=== PATIENT | female | born 1955 | race African-American/Black ===

== ENCOUNTER 2021-10-14 11:55 | Observation (INO) | payer OTHER, SELFPAY ==
--- OUTSIDE RECORDS SUMMARY | 2021-10-14 12:01 | XMS REPORT | Continuity of Care Document ---
:1955 Author Organization [facility] t Address [address] [place] [address] Care Team Providers Name Role Phone DENNYS CORNELIUS Primary Care Physician Unavailable GIOVANI Attending Clinician Unavailable CHALO CORNELIUS Attending Clinician Unavailable Marcial WALDRON Attending Clinician Unavailable Attending Clinician Unavailable Singer CARRIZALES Attending Clinician Giovani CLAKR Attending Clinician Alona Attending Clinician Unavailable Jenni CLARK A Attending Clinician Faina Redd MD Attending Clinician Alona Admitting Clinician Unavailable Payers Payer Name Policy Type Policy Number Effective Date Expiration Date Zaira martin [employer]ET[employer] MANAGED [id number] 2020 MEDICARE PPO-LAVON 00:00:00 AETNA (MEDICARE [id number] 2020 REPLACEMENT PPO) 00:00:00 [place] B[place]: [id number] 2019 [employer] 00:00:00 [place] [id number] 2019 [employer] - 00:00:00 [facility] Problems Condition Condition Condition Status Onset Resolution Last Treating Co mments Source Name Details Category Date Date Treatment Clinician Date Dysphagia, Dysphagia, Disease Active 2020-08 Overview : Univers unspecifie unspecifie 0-29 Formattin ity of d type d type 00:00: g of this [place] 00 note Medical might be Branch different from the original. Added automatic ally from request for surgery [id number] Hyperlipid Hyperlipid Problem Active M andrew frank 03-22 da 00:[facility]: [facility] Rapid Rapid Disease Active 2020-0 Univers palpitatio palpitatio 04-13 it y of ns ns 00:00: Medical Branch Alopecia Alopecia Disease Active 2020-0 Unive rs 04-13 ity of 00:00: Medical Branch Cataracts, Cataracts, Disease Active 2020-0 U nivers bilateral bilateral 04-06 ity of 00:00: Medical Branch Hyperchole Hyperchole Disease Active 2020-0 U nivers sterolemia sterolemia 04-06 it y of 00:00: [place] [facility] Glaucoma Glaucoma Disease Active 2020-0 Unive rs 8 ity of 00:00: Medical Branch Prediabete Prediabete Disease Active 2020-0 U nivers s s 04-06 ity of 00:00: [place] 00 Medical Branch Seasonal Seasonal Disease Active 2020-0 Unive rs allergic allergic 04-06 ity of rhinitis rhinitis 00:00: 00 Medical Branch Essential Essential Disease Active 2020-0 Uni vers hypertensi hypertensi 04-06 it y of on on 00:00: Medical Branch N64.52 - Diagnosis Active 2018-02-12 M emoria NIPPLE 02-01 12:16:00 l DISCHARGE N64.52 - 00:01: Her page NIPPLE 00 DISCHARGE Active 02/01/2018 [facility] Gastroesop Problem Active 2020-04-17 M emoria hageal 8- 00:14:37 l reflux 00:00: [place] disease Gastroesop 00 (disorder) hageal reflux disease (disorder) Active 03/25/2015 Problem 04/17/2020 Data migrated from [facility] on 04/04/15. [facility], [facility] [place] Tendinitis Problem Active 2020-04-17 M emoria of hip 5- 00:14:37 l (disorder) 00:00: Darrian n Tendinitis 00 of hip (disorder) Active 12/12/2014 Problem 04/17/2020 Data migrated from [employer] on 04/04/15.Da ta migrated from [employer] on 02/18/15. [facility] [place] Family Problem Active 2013-082020-04-17 Memor ia history of 09-02 00:14:37 l malignant Family 00:00: Adela nn neoplasm history of 00 of breast malignant (situation neoplasm ) of breast (situation ) Active 07/03/2014 Problem 04/17/2020 Data migrated from [employer] on 04/04/15. [facility] [place] Tear film Problem Active 2020-04-17 Me moria insufficie 02-06 00:14:37 l ncy Tear 00:00: [place] (disorder) film 00 insufficie ncy (disorder) Active 02/06/2014 Problem 04/17/2020 Data migrated from [employer] on 04/04/15.Da ta migrated from [employer] on 01/10/15. [facility] [place] Cortical Problem Active 2020-04-17 Mem oria senile 4- 00:14:37 l cataract Cortical 00:00: Herm jason (disorder) senile 00 cataract (disorder) Active 11/12/2013 Problem 04/17/2020 Data migrated from [employer] on 04/04/15.Da ta migrated from [employer] on 01/10/15. [facility] [place] Disorder Problem Active 2020-04-17 Mem oria of - 00:14:37 l refraction Disorder 00:00: He rmann AND/OR of 00 accommodat refraction ion AND/OR (disorder) accommodat ion (disorder) Active 03/01/2013 Problem 04/17/2020 Data migrated from [employer] on 01/10/15. [facility] [place] Hypertensi Problem Active 2020-04-17 M emoria ve episode - 00:14:37 l (disorder) 00:00: Darrian n Hypertensi 00 ve episode (disorder) Active 10/05/2012 Problem 04/17/2020 Data migrated from [employer] on 01/10/15. [facility] [place] Physical Problem Active 2020-04-17 Mem oria examinatio 03-22 00:14:37 l n Physical 00:00: Darrian n procedure examinatio 00 (procedure n ) procedure (procedure ) Active 03/22/2012 Problem 04/17/2020 Data migrated from [employer] on 04/04/15. [facility] [place] Screening Problem Active 2020-04-17 Me moria - health 03-22 00:14:37 l check 00:00: [place] (procedure Screening 00 ) - health check (procedure ) Active 03/22/2012 Problem 04/17/2020 Data migrated from [employer] on 04/04/15. [facility] [place] Gynecologi Problem Active 2020-04-17 M emoria c 03-22 00:14:37 l examinatio 00:00: Darrian n n Gynecologi 00 (procedure c ) examinatio n (procedure ) Active 03/22/2012 Problem 04/17/2020 Data migrated from [employer] on 04/04/15. 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 [facility] Body mass Problem Active 2020-04-17 Me moria index 00:14:37 l 20-24 - Body [place] normal mass index (finding) 20-24 - normal (finding) Active Problem 04/17/2020 [facility] [place] Breast Problem Active 2020-04-17 Memor ia neoplasm 00:14:37 l screening Breast Adela nn status neoplasm (finding) screening status (finding) Active Problem 04/17/2020 [facility] [place] Cellulitis Problem Active 2020-04-17 M emoria of face 00:14:37 l (disorder) Darrian n Cellulitis of face (disorder) Active Problem 04/17/2020 [facility] Chest pain Problem Active 2020-04-17 M emoria (finding) 00:14:37 l Chest [place] pain (finding) Active Problem 04/17/2020 [facility] [place] Drug Problem Active 2020-04-17 Memor ia therapy 00:14:37 l finding Drug [place] (finding) therapy finding (finding) Active Problem 04/17/2020 [facility] [place] Galactorrh Problem Active 2020-04-17 M emoria ea not 00:14:37 l associated Darrian n with Galactorrh childbirth ea not (disorder) associated with childbirth (disorder) Active Problem 04/17/2020 [facility] [place] Gastroesop Problem Active 2020-04-17 M emoria hageal 00:14:37 l reflux [place] disease Gastroesop without hageal esophagiti reflux s disease (disorder) without esophagiti s (disorder) Active Problem 04/17/2020 [facility] [place] Maxillary Problem Active 2020-04-17 Me moria sinusitis 00:14:37 l (disorder) Darrian n Maxillary sinusitis (disorder) Active Problem 04/17/2020 [facility] Mixed Problem Active 2020-04-17 Memor ia hyperlipid 00:14:37 l emia Mixed [place] (disorder) hyperlipid emia (disorder) Active Problem 04/17/2020 [facility] [place] Pharyngiti Problem Active 2020-04-17 M emoria s 00:14:37 l (disorder) Darrian n Pharyngiti s (disorder) Active Problem 04/17/2020 [facility] [place] Screening Problem Active 2020-04-17 Me moria status 00:14:37 l (finding) [place] Screening status (finding) Active Problem 04/17/2020 [facility] [place] Hemoglobin Problem Active 2020-04-17 M emoria A1c above 00:14:37 l reference [place] range Hemoglobin (finding) A1c above reference range (finding) Active Problem 04/17/2020 [facility] Long-term Problem Resolve 2020-04-17 2020-04-17 Memoria drug d 3-05 00:14:37 00:14:37 l therapy 00:00: [place] (procedure Long-term 00 ) drug therapy (procedure ) Resolved 10/16/2013 Problem 04/17/2020 Data migrated from [facility] on 01/10/15. [facility] [place] Hordeolum Problem Resolve 2020-04-17 2020-04-17 Memoria externum d 6-12 00:14:37 00:14:37 l (disorder) 00:00: Darrian n Hordeolum 00 externum (disorder) Resolved 01/23/2013 Problem 04/17/2020 Data migrated from [employer] on 02/28/15.Da ta migrated from [employer] on 02/27/15. [facility], [facility] [place] History of Past Illness Condition Condition Condition Status Onset Resolution Last Treating Co mments Source Name Details Category Date Date Treatment Clinician Date Encounter Problem 2017-082019-02-13 2019-02-13 Memoria for 2-13 12:17:37 12:17:37 l gynecologi 22:57: Darrian n epifanio Encounter 00 examinatio for n gynecologi (general) epifanio (routine) examinatio without n abnormal (general) findings (routine) without abnormal findings 8 02/13/2019 Medical Group Nipple Problem 2018-02-03 2018-02-03 M emoria discharge 01-31 02:21:38 02:21:38 l Nipple 15:50: [place] discharge 00 01/31/2018 02/03/2018 [facility] Group Allergies, Adverse Reactions, Alerts Allergy Allergy Status Severity Reaction(s) Onset Inactive Treating Comm ents Source Name Type Date Date Clinician NO KNOWN Drug Active Univers ALLERGIE Class ity of S [place] [facility] Social History Social Habit Start Date Stop Date Quantity Comments Source Exposure to Not sure University of SARS-CoV-2 [place] [facility] (event) Branch History [facility] University o f Alcohol Comment [place] [facility] ical [facility] Alcohol intake 2021-10-11 2021-10-11 Lifetime University of 00:00:00 00:00:00 non-drinker [place] [facility] (finding) Branch Tobacco use and 2020-04-06 2020-04-06 Never used Universit y of exposure 00:00:00 00:00:00 [place] [facility] History [facility] 2020-04-06 2020-04-06 1 University o f Alcohol Frequency 00:00:00 00:00:00 [place] M edical Branch History [facility] 2020-04-06 2020-04-06 99 University o f Alcohol Std 00:00:00 00:00:00 [place] [facility] Drinks Branch History [facility] 2020-04-06 2020-04-06 1 University o f Alcohol Binge 00:00:00 00:00:00 [place] Medic al Branch Social History 2015-05-29 2015-05-29 [facility] Mumtaz cisse 21:25:40 21:25:40 [birth year] Universit y of 00:00:00 00:00:00 [facility] Smoking Status Start Date Stop Date Source Never smoker [facility] Branch Medications Ordered Filled Start Stop Current Ordering Indication Dosage Frequency Signature Comments Components Source Medication Medication Date Date Medication? Clinician (SIG) Name Name zolpidem 5 Yes [id number] 5mg Take 1 Univers mg tablet 3-03 tablet by ity o f 00:00: mouth at [place] 00 bedtime as Medical needed for Branch Insomnia. SERTraline Yes [id number] 50mg Take 1 U nivers 50 mg 2-12 tablet by ity of tablet 00:00: mouth [place] 00 daily. Medical Branch SERTraline Yes [id number] 50mg Take 1 U nivers 50 mg 2-12 tablet by ity of tablet 00:00: mouth [place] 00 daily. Medical Branch SERTraline Yes [id number] 50mg Take 1 U nivers 50 mg 2-12 tablet by ity of tablet 00:00: mouth [place] 00 daily. Medical Branch pantoprazol Yes [id number] 20mg Take 1 Univers e 20 mg EC 2-04 tablet by ity of tablet 00:00: mouth [place] 00 daily. Medical Branch pantoprazol Yes [id number] 20mg Take 1 Univers e 20 mg EC 2-04 tablet by ity of tablet 00:00: mouth [place] 00 daily. Medical Branch pantoprazol Yes [id number] 20mg Take 1 Univers e 20 mg EC 2-04 tablet by ity of tablet 00:00: mouth [place] 00 daily. Medical Branch aspirin Yes 81mg Take 81 mg Univ ers (ADULT LOW 1-25 by mouth ity o f DOSE 15:21: daily. [place] ASPIRIN) 81 23 Medical mg EC Branch tablet aspirin 2021-0 Yes 81mg Take 81 mg Univ ers (ADULT LOW 1-25 by mouth ity o f DOSE 15:21: daily. [place] ASPIRIN) 81 23 Medical mg EC Branch tablet aspirin 2021-0 Yes 81mg Take 81 mg Univ ers (ADULT LOW 1-25 by mouth ity o f DOSE 15:21: daily. [place] ASPIRIN) 81 23 Medical mg Branch tablet traZODone 2021-0 Yes [id number] 100mg Take 1 Univers 100 mg 1-25 tablet by ity of tablet 00:00: mouth at [place] [address] bedtime. Medical Branch hydroCHLORO 2021-0 Yes [id number] 25mg Take 1 Univers thiazide 25 1-25 tablet by ity of mg tablet 00:00: mouth [place] 00 daily. [facility] Branch traZODone 2021-0 Yes [id number] 100mg Take 1 Univers 100 mg 1-25 tablet by ity of tablet 00:00: mouth at [place] [address] bedtime. Medical Branch hydroCHLORO 2021-0 Yes [id number] 25mg Take 1 Univers thiazide 25 1-25 tablet by ity of mg tablet 00:00: mouth [place] 00 daily. [facility] Branch traZODone 2021-0 Yes [id number] 100mg Take 1 Univers 100 mg 1-25 tablet by ity of tablet 00:00: mouth at [place] [address] bedtime. Medical Branch hydroCHLORO 2021-0 Yes [id number] 25mg Take 1 Univers thiazide 25 1-25 tablet by ity of mg tablet 00:00: mouth [place] 00 daily. Medical Branch NIFEdipine 2021-0 Yes [id number] 30mg Take 1 U nivers ER 30 mg 1-22 tablet by ity of tablet 00:00: mouth [place] 00 daily. Medical Branch NIFEdipine 2021-0 Yes [id number] 30mg Take 1 U nivers ER 30 mg 1-22 tablet by ity of tablet 00:00: mouth [place] 00 daily. [facility] Branch NIFEdipine 2021-0 Yes [id number] 30mg Take 1 U nivers ER 30 mg 1-22 tablet by ity of tablet 00:00: mouth [place] 00 daily. [facility] Branch EZETIMIBE 2021-0 Yes [id number] TAKE 1 Un lisa 10 mg 1-10 TABLET ity of tablet 00:00: DAILY [place] 00 Medical Branch EZETIMIBE 2021-0 Yes [id number] TAKE 1 Un lisa 10 mg 1-10 TABLET ity of tablet 00:00: DAILY [place] 00 [facility] Branch EZETIMIBE 2021-0 Yes [id number] TAKE 1 Un lisa 10 mg 1-10 TABLET ity of tablet 00:00: DAILY [place] 00 Medical Branch latanoprost 2021-0 Yes Univer s 0.005 % 1-06 ity of ophthalmic 00:00: [place] drops 00 Medical Branch latanoprost Yes Univer s 0.005 % - ity of ophthalmic 00:00: [place] drops 00 Medical Branch latanoprost Yes Univer s 0.005 % -06 ity of ophthalmic 00:00: [place] drops 00 Medical Branch carboxymeth 2020-[address] in U nivers ylcellulose 1-09 each eye. ity of sodium 13:38: [place] (REFRESH 19 Medical OPHTHALMIC) Branch carboxymeth 2020-[address] in U nivers ylcellulose 1-09 each eye. ity of sodium 13:38: [place] (REFRESH 19 Medical OPHTHALMIC) Branch carboxymeth 2020-[address] in U nivers ylcellulose 1-09 each eye. ity of sodium 13:38: [place] ([facility] Medical OPHTHALMIC) Branch timolol 0.5 2019-08 Yes INSTILL 1 U nivers % 2-04 DROP IN TO ity of ophthalmic 00:00: BOTH EYES [place] solution 00 TWICE A Medical DAY Branch timolol 0.5 2019-08 Yes INSTILL 1 U nivers % 2-04 DROP IN TO ity of ophthalmic 00:00: BOTH EYES [place] solution 00 TWICE A Medical DAY Branch timolol 0.5 2019-08 Yes INSTILL 1 U nivers % 2-04 DROP IN TO ity of ophthalmic 00:00: BOTH EYES [place] solution 00 TWICE A Medical DAY Branch Fluconazole Yes 150 mg = 1 Memoria 150 MG Oral 4-06 tab, PO, l Tablet 15:29: ONCE, # 1 Darrian n [Diflucan] 00 tab, 0 Refill(s), Pharmacy: [facility] nitrofurant Yes 100 mg = 1 Memoria oin 3-12 cap, PO, l macrocrysta 20:26: BID, X 5 He rmann ls-monohydr 00 day, # 10 ate 100 mg cap, 0 oral Refill(s), capsule Pharmacy: (Macrobid) [facility] Fluconazole Yes 150 mg = 1 Memoria 150 MG Oral 3-12 tab, PO, l Tablet 20:06: ONCE, # 1 Darrian n [Diflucan] 00 tab, 0 Refill(s), Pharmacy: [id number] Fluconazole No 150 mg = 1 Memoria 150 MG Oral 3-12 tab, PO, l Tablet 20:05: ONCE, # 1 Darrian n [Diflucan] 00 tab, 0 Refill(s), Pharmacy: [facility] NIFEdipine Yes = 1 tab, Mem oria 30 mg oral 3-11 PO, Daily, l tablet, 16:07: # 90 tab, Adela nn extended 13 Refill(s) release 1, Pharmacy: [facility] atorvastati Yes 10 mg = 1 M emoria n 10 mg 2-25 tab, PO, l oral tablet 23:41: Bedtime, # Felipe 19 90 tab, 4 Refill(s), Pharmacy: [facility] NIFEdipine Yes 30 mg = 1 Me moria 30 mg oral 2-25 tab, PO, l tablet, 23:41: Daily, # Darrian n extended 15 90 tab, 4 release Refill(s), Pharmacy: [facility] Tobramycin 2017-08 No 1 drp, Memor ia 3 MG/ML 2-24 RIGHT EYE, l Ophthalmic 16:34: Q4H, X 7 Her page Solution 00 day, # 5 ml, 0 Refill(s), Pharmacy: [id number] Cefuroxime 2017-08 No 500 mg = 1 M emoria 500 MG Oral 2-24 tab, PO, l Tablet 16:34: BID, X 10 Darrian n [Ceftin] 00 day, # 20 tab, 0 Refill(s), Pharmacy: [facility]5 NIFEdipine Yes 30 mg = 1 Me moria 30 mg oral 6-20 tab, PO, l tablet, 14:23: Daily, # Darrina n extended 50 90 tab, 4 release Refill(s), Pharmacy: [facility] atorvastati Yes 10 mg = 1 M emoria n 10 mg 6-20 tab, PO, l oral tablet 14:23: Bedtime, # [place] 48 90 tab, 4 Refill(s), Pharmacy: [facility] NIFEdipine No 30 mg = 1 Me moria 30 mg oral 3-09 tab, PO, l tablet, 23:27: Daily, # Darrian n extended 11 90 tab, 4 release Refill(s), Pharmacy: [facility] atorvastati No 10 mg = 1 M emoria n 10 mg 3-09 tab, PO, l oral tablet 23:26: Bedtime, # [place] 55 90 tab, 4 Refill(s), Pharmacy: [facility] NIFEdipine No 30 mg = 1 Me moria 30 mg oral 3-09 tab, PO, l tablet, 23:22: Daily, # Darrian n extended 46 90 tab, 4 release Refill(s), Pharmacy: [facility] [id number] atorvastati No 10 mg = 1 M emoria n 10 mg 3-09 tab, PO, l oral tablet 23:22: Bedtime, # [place] 44 90 tab, 4 Refill(s), Pharmacy: [id number] Penicillin No 500 mg = 1 M emoria V Potassium 3-09 tab, PO, l 500 MG Oral 23:22: Q6H, X 10 H ermann Tablet 00 day, # 40 tab, 0 Refill(s), Pharmacy: [facility] 140 ofloxacin ofloxacin No ofloxacin [place] 0.3 % ear 0.3 % ear 0.3 % ear da drops drops drops [facility] INSTILL 10 INSTILL 10 INSTILL 10 al DROPS INTO DROPS INTO DROPS INTO Health AFFECTED AFFECTED AFFECTED Out reac EAR(S) BY EAR(S) BY EAR(S) BY h OTIC ROUTE OTIC ROUTE OTIC ROUTE Program ONCE DAILY ONCE DAILY ONCE DAILY Augmentin Augmentin No 1 Q12H Augmentin [place] 875 mg-125 875 mg-125 875 mg-125 da mg tablet mg tablet mg tablet [facility] Take 1 Take 1 Take 1 al tablet tablet tablet Health every 12 every 12 every 12 Out reac hours by hours by hours by h oral route oral route oral route Program for 10 for 10 for 10 days. days. days. ezetimibe ezetimibe No 1 Q1D ezetimibe [place] 10 mg 10 mg 10 mg da tablet Take tablet Take tablet [facility] 1 tablet 1 tablet Take 1 al every day every day tablet Hea lth by oral by oral every day Outr eac route. route. by oral h route. Program nifedipine nifedipine No 1 Q1D nifedipine [place] ER 30 mg ER 30 mg ER 30 mg da tablet,exte tablet,exte tablet,ext [facility] nded nded ended al release release release Health Take 1 Take 1 Take 1 Outreac tablet tablet tablet h every day every day every day Program by oral by oral by oral route. route. route. Immunizations Ordered Filled Immunization Date Status Comments [facility] e Immunization Name Name SARS-COV-2 COVID-19 2021-06-29 Completed Unive rsity of MODERNA BOOSTER 00:00:00 [facility] VACCINE Branch SARS-COV-2 COVID-19 2021-06-29 Completed Unive rsity of MODERNA BOOSTER 00:00:00 [facility] SARS-COV-2 COVID-19 2021-06-29 Completed Unive rsity of MODERNA BOOSTER 00:00:00 [facility] Influenza Virus 2021-05-12 Completed Universit y of Vaccine Quad IM 3+ 00:00:00 [facility] Influenza Virus 2021-05-12 Completed Universit y of Vaccine Quad IM 3+ 00:00:00 [facility] Influenza Virus 2021-05-12 Completed Universit y of Vaccine Quad IM 3+ 00:00:00 [facility] SARS-COV-2 COVID-19 2020-09-18 Completed Unive rsity of MODERNA VACCINE 00:00:00 [facility] SARS-COV-2 COVID-19 2020-09-18 Completed Unive rsity of MODERNA VACCINE 00:00:00 [facility] SARS-COV-2 COVID-19 2020-09-18 Completed Unive rsity of MODERNA VACCINE 00:00:00 [facility] SARS-COV-2 COVID-19 2020-08-21 Completed Unive rsity of MODERNA VACCINE 00:00:00 [facility] SARS-COV-2 COVID-19 2020-08-21 Completed Unive rsity of MODERNA VACCINE 00:00:00 [facility] SARS-COV-2 COVID-19 2020-08-21 Completed Unive rsity of MODERNA VACCINE 00:00:00 [facility] Influenza High Dose 2020-04-14 Completed Unive rsity of 00:00:00 [facility] Influenza High Dose 2020-04-14 Completed Unive rsity of 00:00:00 [facility] Influenza High Dose 2020-04-14 Completed Unive rsity of 00:00:00 [facility] influenza virus 2017-05-22 Completed [facility] [place] vaccine, 00:00:00 inactivated<sup>1</ sup> influenza virus 2016-06-01 Completed [facility] [place] vaccine, 00:00:00 inactivated<sup>2</ sup> influenza virus 2016-06-01 Completed [facility] [place] vaccine, 00:00:00 inactivated<sup>1</ sup> Vital Signs Vital Name Observation Time Observation Value Comments Source Systolic blood 2021-10-14 15:06:00 153 mm[Hg] Univer sity of pressure [facility] Diastolic blood 2021-10-14 15:06:00 80 mm[Hg] Unive rsity of pressure [facility] Heart rate 2021-10-14 15:06:00 81 /min Universi ty of [facility] Body temperature 2021-10-14 15:06:00 36.83 Samantha Univ ersity of [facility] Respiratory rate 2021-10-14 15:06:00 18 /min Univ ersity of [facility] Body weight 2021-10-14 15:06:00 63.05 kg Universi ty of [place] [facility] BMI 2021-10-14 15:06:00 22.44 kg/m2 Universi ty of [facility] Oxygen saturation in 2021-10-14 15:06:00 99 /min University Arterial blood by [facility] Pulse oximetry Branch Systolic blood 2021-10-04 17:09:00 120 mm[Hg] Univer sity of pressure [facility] Diastolic blood 2021-10-04 17:09:00 72 mm[Hg] Unive rsity of pressure [facility] Heart rate 2021-10-04 17:09:00 69 /min Universi ty of [place] [facility] Body temperature 2021-10-04 17:09:00 36.61 Samantha Univ ersity of [facility] Branch Respiratory rate 2021-10-04 17:09:00 16 /min Univ ersity of [facility] Branch Body weight 2021-10-04 17:09:00 63.322 kg Universi ty of [place] [facility] BMI 2021-10-04 17:09:00 22.53 kg/m2 Universi ty of [facility] Oxygen saturation in 2021-10-04 17:09:00 98 /min University of Arterial blood by [facility] Pulse oximetry Branch BP Diastolic 2021-03-22 00:00:00 77 mm[Hg] [place] [facility] Height 2021-03-22 00:00:00 66 [in_i] [place] [facility] BMI (Body Mass 2021-03-22 00:00:00 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) [facility] BP Systolic 2021-03-22 00:00:00 152 mm[Hg] [place] [facility] Body Weight 2021-03-22 00:00:00 2304 [oz_av] [place] [facility] Systolic (mm Hg) 2019-12-04 16:08:00 Zak rial [place] Diastolic (mm Hg) 2019-12-04 16:08:00 Mem orial [place] Heart Rate 2019-12-04 16:08:00 [facility] [place] Temperature Oral (F) 2019-12-04 16:08:00 98.3 F [facility] [place] Weight 2019-12-04 16:08:00 [facility] Systolic (mm Hg) 2019-10-24 19:53:00 [facility] [place] Diastolic (mm Hg) 2019-10-24 19:53:00 [facility] [place] Heart Rate 2019-10-24 19:53:00 [facility] Temperature Oral (F) 2019-10-24 19:53:00 98.7 F [facility] Weight 2019-10-24 19:53:00 [facility] Systolic (mm Hg) 2019-09-06 19:08:00 [facility] [place] Diastolic (mm Hg) 2019-09-06 19:08:00 [facility] Heart Rate 2019-09-06 19:08:00 [facility] [place] Temperature Oral (F) 2019-09-06 19:08:00 98.3 F [facility] [place] Weight 2019-09-06 19:08:00 [facility] [place] Systolic (mm Hg) 2019-08-05 19:13:00 [facility] [place] Diastolic (mm Hg) 2019-08-05 19:13:00 [facility] Heart Rate 2019-08-05 19:13:00 [facility] [place] Temperature Oral (F) 2019-08-05 19:13:00 98.1 F [facility] [place] Weight 2019-08-05 19:13:00 [facility] Weight 2019-03-13 18:26:00 [facility] [place] Temperature Oral (F) 2019-03-13 18:26:00 98.0 F [facility] [place] Heart Rate 2019-03-13 18:26:00 [facility] Systolic (mm Hg) 2019-03-13 18:26:00 [facility] [place] Diastolic (mm Hg) 2019-03-13 18:26:00 [facility] Respitory Rate 2018-08-31 21:58:00 [facility] Temperature Oral (F) 2018-08-31 21:58:00 98.3 F [facility] [place] Heart Rate 2018-08-31 21:58:00 [facility] Weight 2018-08-31 21:58:00 [facility] Systolic (mm Hg) 2018-08-31 21:58:00 [facility] Diastolic (mm Hg) 2018-08-31 21:58:00 [facility] [place] Weight 2018-08-06 15:30:00 [facility] Temperature Oral (F) 2018-08-06 15:30:00 98.4 F [facility] Respitory Rate 2018-08-06 15:30:00 [facility] [place] Heart Rate 2018-08-06 15:30:00 [facility] [place] Systolic (mm Hg) 2018-08-06 15:30:00 [facility] [place] Diastolic (mm Hg) 2018-08-06 15:30:00 [facility] [place] Height 2018-07-26 21:54:00 167.64 cm [facility] Weight 2018-07-26 21:54:00 [facility] [place] BMI Calculated 2018-07-26 21:54:00 [facility] Systolic (mm Hg) 2018-07-26 21:54:00 [facility] [place] Diastolic (mm Hg) 2018-07-26 21:54:00 [facility] [place] Heart Rate 2018-07-26 21:54:00 [facility] [place] Height 2018-02-21 15:24:00 167.64 cm [facility] Weight 2018-02-21 15:24:00 [facility] BMI Calculated 2018-02-21 15:24:00 [facility] Systolic (mm Hg) 2018-02-21 15:24:00 [facility] [place] Diastolic (mm Hg) 2018-02-21 15:24:00 [facility] Heart Rate 2018-02-21 15:24:00 [facility] [place] Temperature Oral (F) 2018-02-21 15:24:00 98.5 F [facility] BMI Calculated 2018-01-31 14:42:00 [facility] Systolic (mm Hg) 2018-01-31 14:42:00 [facility] Diastolic (mm Hg) 2018-01-31 14:42:00 [facility] [place] Heart Rate 2018-01-31 14:42:00 [facility] Height 2018-01-31 14:42:00 167.64 cm [facility] Weight 2018-01-31 14:42:00 [facility] [place] Weight 2018-01-31 13:42:00 [facility] [place] Systolic (mm Hg) 2018-01-31 13:42:00 [facility] [place] Diastolic (mm Hg) 2018-01-31 13:42:00 [facility] Heart Rate 2018-01-31 13:42:00 [facility] Respitory Rate 2018-01-31 13:42:00 [facility] Temperature Oral (F) 2018-01-31 13:42:00 97.6 F [facility] [place] Weight 2017-10-20 22:24:00 [facility] [place] BMI Calculated 2017-10-20 22:24:00 [facility] [place] Height 2017-10-20 22:24:00 162.56 cm [facility] Heart Rate 2017-10-20 22:24:00 [facility] Respitory Rate 2017-10-20 22:24:00 [facility] [place] Temperature Oral (F) 2017-10-20 22:24:00 98.8 F [facility] Systolic (mm Hg) 2017-10-20 22:24:00 [facility] [place] Diastolic (mm Hg) 2017-10-20 22:24:00 [facility] Weight 2017-07-31 20:52:00 [facility] Heart Rate 2017-07-31 20:52:00 [facility] Temperature Oral (F) 2017-07-31 20:52:00 98.0 F Ivis Wang Systolic (mm Hg) 2017-07-31 20:52:00 Zak franklin Wang Diastolic (mm Hg) 2017-07-31 20:52:00 [facility] [place] Procedures Procedure Date / Time Performed Performing Clinician [facility] e CONSENT/REFUSAL FOR 2021-10-14 15:02:38 [facility] T[facility]AT[facility] Arthroplasty<sup>1</s [facility] ermann up> Biopsy of Ivis Wang breast<sup>2</sup> Plan of Care Planned Activity Planned Date Details Comments Source Encounters Start End Encounter Admission Attending Care Care Encounter Source Date/Time Date/Time Type Type Clinicians Facility Department ID 2022-04-04 2022-04-04 [facility] [id number] [facility] 10:30:00 10:30:00 MANJIT [id number] [facility] 2021-10-26 2021-10-26 [facility] [id number] Univers 10:00:00 10:00:00 DENNYS [id number] [facility] 2021-10-14 2021-10-14 [facility] [id number] Univers 15:30:00 15:30:00 SENDIL [id number] [facility] 2021-10-14 2021-10-14 Emergency X [facility] ERT [id number] Univers 09:09:00 09:36:00 DINA [facility] 2021-10-14 2021-10-14 Emergency [facility] [id number] Univers 09:09:00 09:36:00 Dina BAJWA [id number] i ty [id number] [id number] [address] 2021-10-04 2021-10-04 Office [facility] [id number] Univers 11:00:00 11:37:57 Visit Manjit BAJWA [id number] i ty of [place] [id number] [facility] PROF[facility]IO [id number] Tn dical NAL [address] BUILDING 2021-07-03 2021-07-03 Outpatient Obisesan_ad MEHOP MEHOP [id number] [place] 02:27:00 02:27:00 ekunbi [id number] [facility] 2021-07-03 2021-07-03 Outpatient Obisesan_ad MEHOP MEHOP [id number] [place] 02:27:00 02:27:00 ekunbi [id number] [facility] 2021-05-29 2021-05-29 Outpatient Obisesan_ad MEHOP MEHOP [id number] [place] 03:51:00 03:51:00 ekunbi [id number] [facility] 2021-04-24 2021-04-24 Outpatient Obisesan_ad MEHOP MEHOP 116 [id number] [place] 03:05:00 03:05:00 ekunbi [id number] [facility] 2021-03-23 2021-03-23 Outpatient Obisesan_ad MEHOP MEHOP 116 [id number] [place] 09:42:00 09:42:00 ekunbi [id number] [facility] 2021-03-22 2021-03-22 Outpatient Obisesan_ad MEHOP MEHOP 116 [id number] [place] 08:42:00 08:42:00 ekunbi [id number] [facility] 2021-03-22 2021-03-22 Adekunbi VAHOP [place] - [id number] [place] 00:00:00 00:00:00 ObMargaret james da TALENT SCOUT: [facility] - [facility] al [facility]Formerly [facility] [address] h , Ph. Program 2020-12-15 2020-12-15 Telephone ELISSA Arteaga [id number] 00:00:00 00:00:00 [employer] [facility] [id number] [place] [id number] Tonya [phone] nal [address] 2020-12-11 2020-12-11 Telephone Adum, [facility] [id number] 00:00:00 00:00:00 Marianna Bajwa [id number] [place] [id number] Professio [phone] [address] 2020-12-09 2020-12-09 Office Ad, [facility] [id number] 11:02:22 12:10:56 Visit Marianna Bajwa [id number] [place] [id number] Professio [phone] [address] 2020-04-13 2020-04-15 Phone nullFlavo [facility] Family [id number] Memoria 15:28:28 04:59:59 Message r Medicine 09 faina Wang 2019-12-10 2019-12-12 Phone nullFlavo [facility] Family [id number] Memoria 14:09:41 04:59:59 Message r Medicine 08 Gerry Bhattann 2019-12-07 2019-12-08 Between nullFlavo [facility] Family [id number] Memoria 19:14:02 19:14:02 Visit r Medicine 28 faina Wang 2019-12-04 2019-12-05 Outpatient nullFlavo [facility] Family 4 [id number] Memoria 16:00:00 04:59:59 r Medicine 52 faina Wang 2019-12-02 2019-12-04 Phone nullFlavo [facility] Family [id number] Memoria 13:34:12 04:59:59 Message r Medicine 07 faina Bhattann 2019-12-02 2019-12-04 Phone nullFlavo [facility] Family [id number] Memoria 13:23:17 04:59:59 Message r Medicine 06 faina Wang 2019-11-18 2019-11-19 Outpatient nullFlavo [facility] 4 [id number] Mem[facility] 15:15:00 04:59:59 r Medicine 51 faina Wang 2019-11-18 2019-11-18 Ambulatory nullFlavo [facility] 4 [id number] Mem[facility] 15:15:00 15:15:00 Pre-Reg r Medicine 50 faina Wang 2019-11-15 2019-11-15 Ambulatory nullFlavo [facility] 4 [id number] Memoria 20:15:00 20:15:00 Pre-Reg r Medicine 49 faina Wang 2019-10-31 2019-10-31 Ambulatory nullFlavo [facility] 4 [id number] Memoria 16:00:00 16:00:00 Pre-Reg r Medicine 48 faina Wang 2019-10-30 2019-10-31 Between nullFlavo [facility] [id number] Memoria 13:27:32 13:27:32 Visit r Medicine 25 faina Wang 2019-10-24 2019-10-25 Outpatient nullFlavo [facility] 4 [id number] Memoria 20:15:00 04:59:59 r Medicine 47 faina Wang 2019-10-22 2019-10-24 Phone nullFlavo [facility] [id number] Memoria 13:44:50 04:59:59 Message r Medicine 05 faina Wang 2019-09-06 2019-09-07 Outpatient nullFlavo [facility] 4 [id number] Memoria 19:00:00 05:59:59 r Medicine 46 faina Wang 2019-09-06 2019-09-06 Ambulatory nullFlavo [facility] 4 [id number] Memoria 16:30:00 16:30:00 Pre-Reg r Medicine 45 faina Wang 2019-08-05 2019-08-06 Outpatient nullFlavo [facility] 4 [id number] Memoria 19:00:00 05:59:59 r Medicine 44 faina Wang 2019-07-30 2019-07-30 Outpatient [facility] [id number] Memoria 16:00:00 16:00:00 37 faina Wang 2019-03-28 2019-03-28 Ambulatory nullFlavo [facility] [id number] Memoria 13:30:00 13:30:00 Pre-Reg r Radiology 42 faina Wang 2019-03-22 2019-03-24 Phone nullFlavo [facility] Family [id number] Memoria 15:28:38 04:59:59 Message r Medicine 04 faina Wang 2019-03-22 2019-03-23 Outpatient nullFlavo [facility] [id number] Memoria 14:00:00 04:59:59 r Radiology 43 faina Wang 2019-03-13 2019-03-14 Outpatient nullFlavo [facility] 4 [id number] Memoria 18:15:00 04:59:59 r Medicine 41 faina Wang 2019-02-28 2019-03-02 Phone nullFlavo [facility] Family [id number] Memoria 15:05:12 04:59:59 Message r Medicine 03 faina Wang 2019-02-06 2019-02-06 Ambulatory nullFlavo [facility] 4 [id number] Memoria 13:30:00 13:30:00 Pre-Reg r Medicine 35 faina Wang 2018-10-08 2018-10-10 Phone nullFlavo [facility] Family [id number] Memoria 22:15:00 05:59:59 Message r Medicine 02 faina Wang 2018-08-31 2018-09-01 Outpatient nullFlavo [facility] 4 [id number] Memoria 22:15:00 05:59:59 r Medicine 40 faina Wang 2018-08-06 2018-08-07 Ambulatory nullFlavo [facility] [id number] Memoria 16:45:00 05:59:59 Pre-Reg r Radiology 39 faina Wang 2018-08-06 2018-08-07 Outpatient nullFlavo [facility] Family 4 [id number] Memoria 15:15:00 05:59:59 r Medicine 38 faina Wang 2018-07-26 2018-07-27 Outpatient nullFlavo [facility] [employer] 4 [id number] Memoria 21:30:00 05:59:59 r Bacon 27 faina Wang 2018-03-13 2018-03-13 Ambulatory nullFlavo [facility] [id number] Memoria 16:00:00 16:00:00 Pre-Reg r Radiology 29 faina Wang 2018-02-21 2018-02-22 Outpatient nullFlavo [facility] Family 4 [id number] Memoria 15:00:00 04:59:59 r Medicine 36 faina Wang 2018-02-12 2018-02-13 Outpt Diag nullFlavo [facility] [id number] Memoria 17:05:00 04:59:00 Services r Outpatient 00 faina Wang [place] 2018-01-31 2018-02-01 Outpatient nullFlavo [facility] [employer] 4 [id number] Memoria 14:30:00 04:59:59 r Gerry 33 faina Wang 2018-01-31 2018-02-01 Outpatient nullFlavo [facility] 4 [id number] Memoria 13:30:00 04:59:59 r Medicine 34 faina Wang 2017-10-20 2017-10-21 Outpatient nullFlavo [facility] 4 [id number] Memoria 21:45:00 05:59:59 r Medicine 32 faina Wang 2017-08-21 2017-08-21 Ambulatory nullFlavo [facility] [id number] Memoria 21:30:00 21:30:00 Pre-Reg r Gastroenter 28 faina Garrett 2017-07-31 2017-08-01 Outpatient nullFlavo [facility] 4 [id number] Memoria 21:00:00 05:59:59 r Medicine 31 faina [place] 2017-06-05 2017-06-05 Outpatient MHIE [facility] [id number] Memoria 16:00:00 16:00:00 30 faina Felipe 2017-05-30 2017-05-30 Outpatient MHIE [facility] [id number] Memoria 15:30:00 15:30:00 26 faina Felipe 2017-04-20 2017-04-20 Outpatient MHIE [facility]IE [id number] Memoria 15:45:00 15:45:00 24 faina Felipe 2017-03-29 2017-03-29 Outpatient MHIE [facility] [id number] Memoria 15:30:00 15:30:00 25 faina Felipe 2017-03-10 2017-03-10 Outpatient MHIE [facility]IE [id number] Memoria 10:00:00 10:00:00 23 faina Felipe 2017-01-12 2017-01-12 Outpatient MHIE [facility] [id number] Memoria 09:15:00 09:15:00 22 faina Felipe 2016-12-05 2016-12-05 Outpatient MHIE [facility] [id number] Memoria 15:45:00 15:45:00 21 faina Felipe 2016-09-01 2016-09-01 Outpatient MHIE [facility]IE [id number] Memoria 11:15:00 11:15:00 20 faina Felipe 2016-04-25 2016-04-25 Outpatient MHIE [facility] [id number] Memoria 11:30:00 11:30:00 18 faina Felipe 2016-04-13 2016-04-13 Outpatient MHIE [facility] [id number] Memoria 15:00:00 15:00:00 19 faina Felipe 2016-03-21 2016-03-21 Outpatient MHIE [facility] [id number] Memoria 09:00:00 09:00:00 16 faina Feliep 2016-03-15 2016-03-15 Outpatient MHIE [facility] [id number] Memoria 09:00:00 09:00:00 17 faina Felipe 2016-03-14 2016-03-14 Outpatient MHIE [facility] [id number] Memoria 13:00:00 13:00:00 15 faina Felipe 2016-03-14 2016-03-14 Outpatient MHIE [facility]IE [id number] Memoria 13:00:00 13:00:00 14 faina Felipe 2016-03-14 2016-03-14 Outpatient MHIE MHIE [id number] Memoria 11:15:00 11:15:00 13 faina Felipe 2016-01-21 2016-01-21 Outpatient MHIE [facility]IE [id number] Memoria 11:00:00 11:00:00 08 faina Felipe 2016-01-21 2016-01-21 Outpatient MHIE MHIE [id number] Memoria 11:00:00 11:00:00 12 faina Felipe 2016-01-21 2016-01-21 Outpatient MHIE MHIE [id number] Memoria 10:00:00 10:00:00 09 faina Felipe 2015-10-30 2015-10-30 Outpatient MHIE [facility] [id number] Memoria 09:45:00 09:45:00 11 faina Wang 2015-09-22 2015-09-22 Outpatient MHIE [facility] [id number] Memoria 16:15:00 16:15:00 10 faina Wang 2015-07-14 2015-07-14 Outpatient MHIE [facility] [id number] Memoria 15:45:00 15:45:00 05 faina Wang 2015-07-14 2015-07-14 Outpatient MHIE [facility] [id number] Memoria 15:30:00 15:30:00 04 faina Felipe 2015-07-13 2015-07-13 Outpatient ADALGISA ADALGISA [id number] Memoria 15:30:00 15:30:00 07 faina Felipe 2015-05-29 2015-05-29 Outpatient ADALGISA ADALGISA [id number] Memoria 15:30:00 15:30:00 06 faina Felipe 2015-04-13 2015-04-13 Outpatient ADALGISA ADALGISA [id number] Memoria 15:00:00 15:00:00 00 faina Felipe 2015-03-31 2015-03-31 Outpatient ADALGISA ADALGISA [id number] Memoria 09:00:00 09:00:00 03 faina Felipe 2015-03-25 2015-03-25 Outpatient ADALGISA ADALGISA [id number] Memoria 16:15:00 16:15:00 02 faina Felipe 2015-03-19 2015-03-19 [id number] Memoria 15:15:00 15:15:00 01 faina Wang Results Test Description Test Time Test Comments Results Result Comments Source MOLECULAR DIAGNOSTIC 2019-12-04 16:58:00 Test Item Value Reference Range Interpretation Comme nts T vaginalis by Amp Det(APTIMA) (test code = T vaginalis by Amp NOT DETECTED Det(APTIMA)) [facility] [id number] 16:47:00 Test Item Value Reference Range Interpretation Comments Glucose Lvl (test code = Glucose Lvl) 90 65-99 [facility] [id number] 16:47:00 Test Item Value Reference Range Interpretation Comments BUN (test code = BUN) 15 7-25 [facility] IM5 [id number] 16:47:00 Test Item Value Reference Range Interpretation Comments Creatinine Lvl (test code = Creatinine 0.94 0.50-0.99 Lvl) [facility] IM5 [id number] 16:47:00 Test Item Value Reference Range Interpretation Comments eGFR NON-AFR. [place] (test code = 64 eGFR NON-AFR. [place]) [facility] [id number] 16:47:00 Test Item Value Reference Range Interpretation Comments eGFR (test code = eGFR 74 ) [facility] [id number] 16:47:00 Test Item Value Reference Range Interpretation Comments B/C Ratio (test code = B/C NOT APPLICABLE 22 Ratio) [place] [id number] 16:47:00 Test Item Value Reference Range Interpretation Comments Sodium Lvl (test code = Sodium Lvl) 143 135-146 [place] [id number] 16:47:00 Test Item Value Reference Range Interpretation Comments Potassium Lvl (test code = Potassium 4.7 3.5-5.3 Lvl) [place] [id number] 16:47:00 Test Item Value Reference Range Interpretation Comments Chloride Lvl (test code = Chloride Lvl) 106 98-110 [place] [id number] 16:47:00 Test Item Value Reference Range Interpretation Comments CO2 (test code = CO2) 30 20-32 [place] [id number] 16:47:00 Test Item Value Reference Range Interpretation Comments Calcium Lvl (test code = Calcium Lvl) 9.5 8.6-10.4 [place] [id number] 16:47:00 Test Item Value Reference Range Interpretation Comments Total Protein (test code = Total 7.4 6.1-8.1 Protein) [facility]2020-04-22 16:47:00 Test Item Value Reference Range Interpretation Comments Albumin Lvl (test code = Albumin Lvl) 4.3 3.6-5.1 [place] [id number] 16:47:00 Test Item Value Reference Range Interpretation Comments Globulin (test code = Globulin) 3.1 1.9-3.7 [place] [id number] 16:47:00 Test Item Value Reference Range Interpretation Comments A/G Ratio (test code = A/G Ratio) 1.4 1.0-2.5 [place] [id number] 16:47:00 Test Item Value Reference Range Interpretation Comments Bili Total (test code = Bili Total) 0.5 0.2-1.2 [place] [id number] 16:47:00 Test Item Value Reference Range Interpretation Comments Alk Phos (test code = Alk Phos) 70 37-153 [place] 315670-04-22 16:47:00 Test Item Value Reference Range Interpretation Comments ASPARTATE TRANSAMINASE (test code = 17 10-35 ASPARTATE TRANSAMINASE) [facility]2020-04-22 16:47:00 Test Item Value Reference Range Interpretation Comments ALANINE AMINOTRANSFERASE (test code = 15 6-29 ALANINE AMINOTRANSFERASE) [facility]wsomstACMQFZWGJC0476-03-14 16:47:00 Test Item Value Reference Range Interpretation Comments WBC X 10x3 (test code = WBC X 10x3) 7.5 3.8-10.8 [facility] [id number] 16:47:00 Test Item Value Reference Range Interpretation Comments RBC X 10x6 (test code = RBC X 10x6) 4.29 3.80-5.10 [facility] [id number] 16:47:00 Test Item Value Reference Range Interpretation Comments Hgb (test code = Hgb) 11.6 11.7-15.5 [facility] CenterQgirvckZWSJTMHWQI8473-22-20 16:47:00 Test Item Value Reference Range Interpretation Comments Hct (test code = Hct) 35.9 35.0-45.0 [facility] [id number] 16:47:00 Test Item Value Reference Range Interpretation Comments MCV (test code = MCV) 83.7 80.0-100.0 [facility] CenterGruvxetBECZXPDUIH4535-08-22 16:47:00 Test Item Value Reference Range Interpretation Comments MCH (test code = MCH) 27.0 pg 27.0-33.0 [facility] CenterCigairwOAFFTVGIVY9879-86-21 16:47:00 Test Item Value Reference Range Interpretation Comments MCHC (test code = MCHC) 32.3 32.0-36.0 [facility] CenterWzsnnxiZBVISEJUWY3581-43-21 16:47:00 Test Item Value Reference Range Interpretation Comments RDW (test code = RDW) 14.8 11.0-15.0 [facility] Cent[id number] 16:47:00 Test Item Value Reference Range Interpretation Comments Platelet (test code = Platelet) 235 140-400 [facility] CenterEwdrpcsYSQGXZSYFC2632-39-34 16:47:00 Test Item Value Reference Range Interpretation Comments MPV (test code = MPV) 11.4 7.5-12.5 [facility] Cent[id number] 16:47:00 Test Item Value Reference Range Interpretation Comments Neutrophils # (test code = Neutrophils 5370 6636-5420 #) [facility] CenterXqkdjooTVTDYESQEE7397-48-39 16:47:00 Test Item Value Reference Range Interpretation Comments Lymphocytes # (test code = Lymphocytes 3311 171-3017 #) [facility]takeqbCBTQGZQBBW9354-42-76 16:47:00 Test Item Value Reference Range Interpretation Comments Monocytes # (test code = Monocytes #) 368 200-950 [facility]pojNNB[facility]WYNCC0596-18-16 16:47:00 Test Item Value Reference Range Interpretation Comments Eosinophils # (test code = Eosinophils 90 15-500 #) [facility] Hos[id number] 16:47:00 Test Item Value Reference Range Interpretation Comments Basophils # (test code 30 See_Comment [Aut omated message] The = Basophils #) system which generated this result tra nsmitted reference range : <=200. The reference r ebony was not used to int erpret this result as normal/abnormal . [facility] HospitalHffbnrzUBLFJKKSDU8019-21-49 16:47:00 Test Item Value Reference Range Interpretation Comments Segs (test code = Segs) 71.6 [facility] HospitalMkgonvaSCEEPDCULN6884-67-39 16:47:00 Test Item Value Reference Range Interpretation Comments Lymphocytes (test code = Lymphocytes) 21.9 [facility]tvtjjlOPKTCEINBT7161-73-99 16:47:00 Test Item Value Reference Range Interpretation Comments Monocytes (test code = Monocytes) 4.9 [facility] HospitalCxkjlrzISFJRIYHCX8964-22-94 16:47:00 Test Item Value Reference Range Interpretation Comments Eosinophils (test code = Eosinophils) 1.2 [facility] H[id number] 16:47:00 Test Item Value Reference Range Interpretation Comments Basophils (test code = Basophils) 0.4 [facility] [id number] 16:47:00 Test Item Value Reference Range Interpretation Comments Result 2 (Urine Culture) See Result Comment (test code = Result 2 (Urine Culture)) [facility]
--- NOTE | 2021-10-14 13:42 | RAD REPORT ---
EXAM DESCRIPTION: CT - Head Brain Wo Cont - 10/14/2021 1:25 pm CLINICAL HISTORY: Declining state;Dizziness COMPARISON: No comparisons TECHNIQUE: Axial 5 mm thick images of the head were obtained without IV contrast. All CT scans are performed using dose optimization technique as appropriate and may include automated exposure control or mA/KV adjustment according to patient size. FINDINGS: No intracranial hemorrhage, mass, edema or shift of mid-line structures. No acute infarcti on changes seen. No abnormal extra-axial fluid collections. Ventricles are normal. No significant atr ophy or chronic ischemic changes. Mastoid air cells are clear. Mucosal thickening changes are seen along the floor the sphenoid sinus a nd left maxillary sinus. No air-fluid level or significant sinus finding. No acute bony findings. IMPRESSION: Negative non-contrast CT head examination for acute or significant finding.
[2021-10-14] MEDS ORDERED: ASPIRIN 81 MG CHEWABLE TABLET ONE (13:44)
[2021-10-14 14:01] LABS: BUN Blood Urea Nitrogen 22 mg/dL (7-18); Bicarbonate 31 mmol/L (21-32); Glucose Level 105 mg/dL (74-106); Potassium 3.6 mmol/L (3.5-5.1); Sodium Level 141 mmol/L (136-145)
[2021-10-14 14:03] LABS: Urine Blood Negative (Negative); Urine Glucose Negative (Negative); Urine Protein Negative (Negative); Urine Specific Gravity 1.015 (1.005-1.030)
[2021-10-14 14:06] LABS: Absolute Lymphocytes (CBC) 2.1 K/uL (0.7-4.9); Hematocrit 35.1 % (36.0-45.0); Lymphocytes % 23.2 % (15.3-44.8); MPV 8.4 fL (7.6-11.3); RBC Red Blood Cell Count 4.17 M/uL (3.86-4.86)
[2021-10-14 14:24] LABS: Protime INR 1.12
[2021-10-14 15:17] LABS: ALT/SGPT 27 U/L (12-78); AST/SGOT 16 U/L (15-37); Albumin 3.9 g/dL (3.4-5.0); Alkaline Phosphatase 76 U/L (45-117); Bilirubin Total 0.3 mg/dL (0.2-1.0); Lipase 102 U/L (73-393); Magnesium 2.3 mg/dL (1.8-2.4); NT PRO-BNP 14 pg/mL (<125); Protein, Total 7.8 g/dL (6.4-8.2); Thyroid Stimulating Hormone 0.911 uIU/mL (0.360-3.740)
--- NOTE | 2021-10-14 15:17 | RAD REPORT ---
EXAM DESCRIPTION: RAD - Chest Single View - 10/14/2021 2:31 pm CLINICAL HISTORY: COUGH COMPARISON: None TECHNIQUE: AP portable chest image was obtained 10/14/2021 2:31 pm . FINDINGS: Lungs are clear. Heart and vasculature are normal. No measurable pleural effusion and no p neumothorax. No acute bony abnormality seen. No acute aortic findings suspected. IMPRESSION: No acute cardiopulmonary process.
[2021-10-14 15:18] LABS: Bilirubin Direct < 0.1 mg/dL (0-0.2)
--- NOTE | 2021-10-14 15:52 | EDPHYS ---
Physician Documentation [facility] Name: Akua Begum Age: 66 yrs Sex: Female : 1955 Arrival Date: 10/14/2021 Time: 12:01 Bed 16 Private MD: ED Physician Christiano Powers HPI: 10/14 13:10 This 66 yrs old Black Female presents to ER via Ambulatory with complaints of UNABLE TO debbie SLEEP, WEIGHT LOSS. 13:10 The patient complains of pain to the top of head, forehead, left frontal area, left debbie side of the back of head, right frontal area, right side of the back of head and right occipital area. The patient describes the headache as aching. Onset: The symptoms/episode began/occurred 100 day(s) ago. weakness, insomina, chairez, weight loss. Associated signs and symptoms: Pertinent positives: nausea, weakness. Severity of symptoms: At its worst the pain was mild, in the emergency department the pain is unchanged. Headache History: The patient has had previous headaches and this one is similar to previous episodes. Onset: The symptoms/episode began/occurred 3 month(s) ago. Severity of symptoms: At their worst the symptoms were mild moderate in the emergency department the symptoms are unchanged. The symptoms are alleviated by nothing. the symptoms are aggravated by nothing. Historical: - Allergies: 12:06 No Known Allergies; cb5 - PMHx: 12:06 Hypertensive disorder; Hypercholesterolemia; diabetes-resolved with weight loss; cb5 - PSHx: 12:06 None; cb5 - Immunization history:: Client reports receiving the 2nd dose of the Covid vaccine. - Social history:: Smoking status: Patient denies any tobacco usage or history of. - Family history:: not pertinent. ROS: 13:10 Constitutional: Negative for fever, chills, and weight loss, Eyes: Negative for injury, debbie pain, redness, and discharge, ENT: Negative for injury, pain, and discharge, Neck: Negative for injury, pain, and swelling, Cardiovascular: Negative for chest pain, palpitations, and edema, Respiratory: Negative for shortness of breath, cough, wheezing, and pleuritic chest pain, Abdomen/GI: Negative for abdominal pain, nausea, vomiting, diarrhea, and constipation, Back: Negative for injury and pain, : Negative for injury, bleeding, discharge, and swelling, MS/Extremity: Negative for injury and deformity, Skin: Negative for injury, rash, and discoloration, Neuro: Negative for headache, weakness, numbness, tingling, and seizure, Psych: Negative for depression, anxiety, suicide ideation, homicidal ideation, and hallucinations, Allergy/Immunology: Negative for hives, rash, and allergies, Endocrine: Negative for neck swelling, polydipsia, polyuria, polyphagia, and marked weight changes, Hematologic/Lymphatic: Negative for swollen nodes, abnormal bleeding, and unusual bruising. Exam: 13:10 Constitutional: This is a well developed, well nourished patient who is awake, alert, debbie and in no acute distress. Head/Face: Normocephalic, atraumatic. Eyes: Pupils equal round and reactive to light, extra-ocular motions intact. Lids and lashes normal. Conjunctiva and sclera are non-icteric and not injected. Cornea within normal limits. Periorbital areas with no swelling, redness, or edema. ENT: Nares patent. No nasal discharge, no septal abnormalities noted. Tympanic membranes are normal and external auditory canals are clear. Oropharynx with no redness, swelling, or masses, exudates, or evidence of obstruction, uvula midline. Mucous membranes moist. Neck: Trachea midline, no thyromegaly or masses palpated, and no cervical lymphadenopathy. Supple, full range of motion without nuchal rigidity, or vertebral point tenderness. No Meningismus. Chest/axilla: Normal chest wall appearance and motion. Nontender with no deformity. No lesions are appreciated. Cardiovascular: Regular rate and rhythm with a normal S1 and S2. No gallops, murmurs, or rubs. Normal PMI, no JVD. No pulse deficits. Respiratory: Lungs have equal breath sounds bilaterally, clear to auscultation and percussion. No rales, rhonchi or wheezes noted. No increased work of breathing, no retractions or nasal flaring. Abdomen/GI: Soft, non-tender, with normal bowel sounds. No distension or tympany. No guarding or rebound. No evidence of tenderness throughout. Back: No spinal tenderness. No costovertebral tenderness. Full range of motion. Female : Normal external genitalia. Skin: Warm, dry with normal turgor. Normal color with no rashes, no lesions, and no evidence of cellulitis. MS/ Extremity: Pulses equal, no cyanosis. Neurovascular intact. Full, normal range of motion. Neuro: Awake and alert, GCS 15, oriented to person, place, time, and situation. Cranial nerves II-XII grossly intact. Motor strength 5/5 in all extremities. Sensory grossly intact. Cerebellar exam normal. Normal gait. Psych: Awake, alert, with orientation to person, place and time. Behavior, mood, and affect are within normal limits. 15:59 ECG was reviewed by the Attending Physician. debbie 15:59 ECG was reviewed by the Attending Physician. [facility] Vital Signs: 12:06 BP 128 / 78; Pulse 78; Resp 17; Temp 98.7; Pulse Ox 99% on R/A; Weight 63.05 kg; Height cb5 5 ft. 6 in. (167.64 cm); Pain 0/10; 12:38 BP 159 / 83; Pulse 69; Resp 16; Pulse Ox 100% ; Pain 0/10; cb5 14:15 BP 173 / 90; Pulse 68; Resp 16; Pulse Ox 98% ; Pain 0/10; cb5 15:00 BP 169 / 84; Pulse 70; Resp 16; Pulse Ox 99% ; Pain 0/10; cb5 16:00 BP 173 / 93; Pulse 74; Resp 16; Pain 0/10; cb5 18:19 BP 168 / 80; Pulse 80; Resp 16; Pulse Ox 98% ; Pain 0/10; cb5 12:06 Body Mass Index 22.43 (63.05 kg, 167.64 cm) cb5 NIH Stroke Scale Scores: 13:10 NIHSS Score: 0 debbie Melania Coma Score: 13:13 Eye Response: spontaneous(4). Verbal Response: oriented(5). Motor Response: obeys debbie commands(6). Total: 15. MDM: 12:38 Patient medically screened. debbie 13:13 Differential diagnosis: hypoglycemia, hyponatremia, sinusitis, temporal arteritis, debbie tension headache, vasomotor headache. Differential Diagnosis altered mental status. Data reviewed: vital signs, nurses notes, lab test result(s), EKG, radiologic studies, CT scan, plain films. Data interpreted: road gang supervisor: rate is 69 beats/min, rhythm is regular, Pulse oximetry: on room air is 100 %. Test interpretation: by ED physician or midlevel provider: ECG, plain radiologic studies. Counseling: I had a detailed discussion with the patient and/or guardian regarding: the historical points, exam findings, and any diagnostic results supporting the discharge/admit diagnosis, lab results, radiology results. 10/14 13:10 Order name: Basic Metabolic Panel [facility] 10/14 13:10 Order name: CBC with Diff [facility] 10/14 13:10 Order name: LFT's [facility] 10/14 13:10 Order name: Magnesium; Complete Time: 15:42 [facility] 10/14 13:10 Order name: NT PRO-BNP; Complete Time: 15:42 [facility] 10/14 13:10 Order name: PT-INR; Complete Time: 14:45 [facility] 10/14 13:10 Order name: Troponin HS; Complete Time: 15:42 [facility] 10/14 13:10 Order name: Lipase; Complete Time: 15:42 [facility] 10/14 13:10 Order name: TSH; Complete Time: 15:42 [facility] 10/14 13:10 Order name: Urine Culture [facility] 10/14 13:10 Order name: Basic Metabolic Panel; Complete Time: 15:42 [facility] 10/14 13:10 Order name: CBC with Automated Diff; Complete Time: 14:15 [facility] 10/14 13:10 Order name: Liver (Hepatic) Function; Complete Time: 15:42 [facility] 10/14 14:03 Order name: Urine Dipstick-Ancillary; Complete Time: 14:15 [facility] 10/14 13:10 Order name: XRAY Chest (1 view); Complete Time: 15:42 [facility] 10/14 13:10 Order name: EKG; Complete Time: 13:11 [facility] 10/14 13:10 Order name: Cardiac monitoring; Complete Time: 13:25 [facility] 10/14 13:10 Order name: EKG - Nurse/Tech; Complete Time: 13:58 [facility] 10/14 13:10 Order name: IV Saline Lock; Complete Time: 13:25 [facility] 10/14 13:10 Order name: Labs collected and sent; Complete Time: 13:25 [facility] 10/14 13:10 Order name: CT Head Brain wo Cont; Complete Time: 14:15 [facility] 10/14 13:38 Order name: EKG; Complete Time: 13:39 10/14 15:45 Order name: EKG; Complete Time: 15:46 [facility] 10/14 16:25 Order name: CONS Physician Consult [facility] 10/14 20:13 Order name: COVID-19/FLU A+B (Document "Date of Onset" if Symptomatic) cs9 10/14 21:58 Order name: COVID-19/FLU A+B [facility] 10/14 13:10 Order name: O2 Per Protocol; Complete Time: 13:25 [facility] 10/14 13:10 Order name: O2 Sat Monitoring; Complete Time: 13:25 [facility] 10/14 13:10 Order name: Urine Dipstick-Ancillary (obtain specimen); Complete Time: 13:58 [facility] 10/14 13:21 Order name: Labs - recollect needed: recollect blue and lavender top; Complete Time: bd 13:58 10/14 13:38 Order name: EKG - Nurse/Tech; Complete Time: 13:43 10/14 15:45 Order name: EKG - Nurse/Tech; Complete Time: 16:28 [facility] EC:59 Rate is 64 beats/min. Rhythm is regular. QRS [place] is Normal. MD interval is normal. QRS debbie interval is normal. QT interval is normal. No Q waves. T waves are Normal. Clinical impression: No evidence of ischemia. Interpreted by me. Reviewed by me. 15:59 Rate is 62 beats/min. Rhythm is regular. QRS [place] is Normal. MD interval is normal. QRS debbie interval is normal. QT interval is normal. T waves are Normal. No ST changes noted. Clinical impression: NSR w/ Non-specific ST/T Changes and No evidence of ischemia. Interpreted by me. Reviewed by me. Administered Medications: 13:43 Drug: Aspirin Chewable Tablet 324 mg Route: PO; cb5 13:57 Drug: NS 0.9% 1000 ml Route: IV; Rate: 1 bolus; Site: right antecubital; cb5 17:03 Drug: hydrALAZINE 10 mg Route: IVP; Site: right antecubital; cb5 21:00 Follow up: Response: Blood pressure is lowered sv1 19:43 Drug: Labetalol 10 mg Route: IVP; Site: right antecubital; sv1 20:58 Follow up: Response: No adverse reaction; Blood pressure is lowered sv1 22:46 Follow up: Response: No adverse reaction; Blood pressure is lowered sv1 Disposition Summary: 10/14/21 15:52 Hospitalization Ordered Hospitalization Status: Observation [facility] Provider: Prince debbie Bhatti Location: Telemetry/MedSurg (observation) debbie Condition: Fair debbie Problem: new debbie Symptoms: have improved debbie Bed/Room Type: Standard [facility] Room Assignment: 208(10/14/21 22:04) cg Diagnosis - Weakness debbie - Syncope Near debbie - Anorexia debbie - Abnormal electrocardiogram [ECG] [EKG] debbie Forms: - Medication Reconciliation Form debbie - SBAR form debbie NIH Stroke Scale - NIH Stroke Score Date: 10/14/2021 Time: 13:10 Total Score = 0 1a. Level of Consciousness (LOC) - 0(Alert) 1b. Level of Consciousness (LOC) (Month \\T\\ Age) - 0(Both) 1c. LOC Commands (Open \\T\\ Closes Eyes/Desktop Analyst) - 0(Both) 2. Best Gaze (Lateral Gaze Paresis) - 0(Normal) 3. Visual Field Loss - 0(No visual loss) 4. Facial Palsy - 0(Normal) 5a. Left Arm: Motor (10-second hold) - 0(No drift) 5b. Right Arm: Motor (10-second hold) - 0(No drift) 6a. Left Leg: Motor (5-second hold - always test supine) - 0(No drift) 6b. Right Leg: Motor (5-second hold - always test supine) - 0(No drift) 7. Limb Ataxia (finger/nose \\T\\ heel/hernandez - test with eyes open) - 0(Absent) 8. Sensory Loss (pinprick arms/legs/face) - 0(Normal) 9. Best Language: Aphasia (description/naming/reading) - 0(No aphasia) 10. Dysarthria (speech clarity - read or repeat words) - 0(Normal) 11. Extinction and Inattention (visual/tactile/auditory/spatial/personal) - 0(No abnormality) Initials: debbie Signatures: Dispatcher [employer] EDMS Missy Dash Corey, MD MD cha Smirch, Shelby, RN RN ss Josh Borrego, HAULING CONTRACTOR-C HAULING CONTRACTOR-Cla1 Ryann Lopez RN RN cg Minesh Pemberton PA PA ej Villicano, Steven, RN RN sv1 Michell Rey, RN RN cb5 Corrections: (The following items were deleted from the chart) 22:04 15:52 debbie cg
--- NOTE | 2021-10-14 15:52 | ER ---
Nurse's Notes [facility] Name: Akua Begum Age: 66 yrs Sex: Female : 1955 Arrival Date: 10/14/2021 Time: 12:01 Bed 16 Private MD: Diagnosis: Weakness;Syncope Near;Anorexia;Abnormal electrocardiogram [ECG] [EKG] Presentation: 10/14 12:06 Chief complaint: Patient states: Not sleeping well, not eating well, losing weight cb5 (about 10 pounds) for past 3 months. No fever. Coronavirus screen: Vaccine status: Patient reports receiving the 2nd dose of the covid vaccine. Client denies travel out of the [place] in the last 14 days. At this time, the client does not indicate any symptoms associated with coronavirus-19. Ebola Screen: Patient denies travel to an Ebola-affected area in the 21 days before illness onset. Initial Sepsis Screen: Does the patient meet any 2 criteria? No. Patient's initial sepsis screen is negative. Does the patient have a suspected source of infection? No. Patient's initial sepsis screen is negative. Risk Assessment: Do you want to hurt yourself or someone else? Patient reports no desire to harm self or others. Onset of symptoms was July 16, 2021. 12:06 Method Of Arrival: Ambulatory cb5 12:06 Acuity: JEANA 3 cb5 Triage Assessment: 12:08 General: Appears ill, Behavior is calm, cooperative, appropriate for age. Pain: Denies cb5 pain. Neuro: Reports weakness. Cardiovascular: No deficits noted. Respiratory: No deficits noted. GI: Reports intolerance of food. Historical: - Allergies: 12:06 No Known Allergies; cb5 - PMHx: 12:06 Hypertensive disorder; Hypercholesterolemia; diabetes-resolved with weight loss; cb5 - PSHx: 12:06 None; cb5 - Immunization history:: Client reports receiving the 2nd dose of the Covid vaccine. - Social history:: Smoking status: Patient denies any tobacco usage or history of. - Family history:: not pertinent. Screenin:15 Abuse screen: Denies threats or abuse. Denies injuries from another. Nutritional cb5 screening: pt states she hasn't had a restful nights sleep in a few months, and is also losing weight. Tuberculosis screening: No symptoms or risk factors identified. Fall Risk None identified. Assessment: 12:15 General: Appears in no apparent distress. comfortable, well groomed, Behavior is calm, cb5 cooperative, appropriate for age. Pain: Denies pain. Neuro: No deficits noted. Level of Consciousness is awake, alert, obeys commands, Oriented to person, place, time, situation, Appropriate for age. Cardiovascular: No deficits noted. Respiratory: No deficits noted. GI: Reports unintentional weight loss. : No deficits noted. EENT: No deficits noted. Derm: No deficits noted. Musculoskeletal: No deficits noted. 13:30 Reassessment: Patient and/or family updated on plan of care and expected duration. Pain cb5 level reassessed. 14:29 Reassessment: Patient and/or family updated on plan of care and expected duration. Pain cb5 level reassessed. 15:25 Reassessment: Patient and/or family updated on plan of care and expected duration. Pain cb5 level reassessed. Pain: Denies pain. 19:43 Reassessment: The patient's blood pressure was 192/90. The provider was notified. sv1 Labetalo 10 mg IVP was given. . 20:05 Reassessment: blood pressure 131/65. sv1 22:30 Reassessment: Report called to Laura Quick . sv1 Vital Signs: 12:06 BP 128 / 78; Pulse 78; Resp 17; Temp 98.7; Pulse Ox 99% on R/A; Weight 63.05 kg; Height cb5 5 ft. 6 in. (167.64 cm); Pain 0/10; 12:38 BP 159 / 83; Pulse 69; Resp 16; Pulse Ox 100% ; Pain 0/10; cb5 14:15 BP 173 / 90; Pulse 68; Resp 16; Pulse Ox 98% ; Pain 0/10; cb5 15:00 BP 169 / 84; Pulse 70; Resp 16; Pulse Ox 99% ; Pain 0/10; cb5 16:00 BP 173 / 93; Pulse 74; Resp 16; Pain 0/10; cb5 18:19 BP 168 / 80; Pulse 80; Resp 16; Pulse Ox 98% ; Pain 0/10; cb5 12:06 Body Mass Index 22.43 (63.05 kg, 167.64 cm) cb5 Melania Coma Score: 13:13 Eye Response: spontaneous(4). Verbal Response: oriented(5). Motor Response: obeys debbie commands(6). Total: 15. NIH Stroke Scale Scores: 13:10 NIHSS Score: 0 debbie ED Course: 12:01 Patient arrived in ED. kz 12:05 Arm band placed on Patient placed in an exam room, on a stretcher. cb5 12:08 Triage completed. cb5 12:15 Michell Rey, RN is Primary Nurse. cb5 12:15 No provider procedures requiring assistance completed. Inserted saline lock: 20 gauge cb5 in right antecubital area, using aseptic technique. 12:38 Christiano Powers MD is Attending Physician. debbie 12:40 Bed in low position. Call light in reach. Side rails up X 1. cb5 13:24 CT Head Brain wo Cont In Process Unspecified. EDMS 13:24 Liver (Hepatic) Function Sent. cb5 13:24 CBC with Automated Diff Sent. cb5 13:24 Basic Metabolic Panel Sent. cb5 13:24 Lipase Sent. cb5 13:24 TSH Sent. cb5 13:25 Basic Metabolic Panel Sent. cb5 13:25 CBC with Diff Sent. cb5 13:25 LFT's Sent. cb5 13:25 Magnesium Sent. cb5 13:25 NT PRO-BNP Sent. cb5 13:25 PT-INR Sent. cb5 13:25 Troponin HS Sent. cb5 14:31 XRAY Chest (1 view) In Process Unspecified. EDMS 15:51 Prince Bhatti MD is Hospitalizing Provider. debbie 19:04 Report given to GAIL Gorman. cb5 21:14 COVID-19/FLU A+B (Document "Date of Onset" if Symptomatic) Sent. sv1 22:45 Patient admitted, IV remains in place. intact. sv1 Administered Medications: 13:43 Drug: Aspirin Chewable Tablet 324 mg Route: PO; cb5 13:57 Drug: NS 0.9% 1000 ml Route: IV; Rate: 1 bolus; Site: right antecubital; cb5 17:03 Drug: hydrALAZINE 10 mg Route: IVP; Site: right antecubital; cb5 21:00 Follow up: Response: Blood pressure is lowered sv1 19:43 Drug: Labetalol 10 mg Route: IVP; Site: right antecubital; sv1 20:58 Follow up: Response: No adverse reaction; Blood pressure is lowered sv1 22:46 Follow up: Response: No adverse reaction; Blood pressure is lowered sv1 Outcome: 15:52 Decision to Hospitalize by Provider. debbie 22:42 Admitted to Med/surg accompanied by tech, via wheelchair. sv1 22:42 Condition: stable 22:42 Instructed on the need for admit. 22:47 Patient left the ED. sv1 NIH Stroke Scale - NIH Stroke Score Date: 10/14/2021 Time: 13:10 Total Score = 0 1a. Level of Consciousness (LOC) - 0(Alert) 1b. Level of Consciousness (LOC) (Month \\T\\ Age) - 0(Both) 1c. LOC Commands (Open \\T\\ Closes Eyes/Sewing Inspector) - 0(Both) 2. Best Gaze (Lateral Gaze Paresis) - 0(Normal) 3. Visual Field Loss - 0(No visual loss) 4. Facial Palsy - 0(Normal) 5a. Left Arm: Motor (10-second hold) - 0(No drift) 5b. Right Arm: Motor (10-second hold) - 0(No drift) 6a. Left Leg: Motor (5-second hold - always test supine) - 0(No drift) 6b. Right Leg: Motor (5-second hold - always test supine) - 0(No drift) 7. Limb Ataxia (finger/nose \\T\\ heel/hernandez - test with eyes open) - 0(Absent) 8. Sensory Loss (pinprick arms/legs/face) - 0(Normal) 9. Best Language: Aphasia (description/naming/reading) - 0(No aphasia) 10. Dysarthria (speech clarity - read or repeat words) - 0(Normal) 11. Extinction and Inattention (visual/tactile/auditory/spatial/personal) - 0(No abnormality) Initials: debbie Signatures: Dispatcher [employer] EDChristiano Ibanez MD MD cha Villicano, Steven, RN RN sv1 Michell Rey, GAIL RN cb5 Moraima Jimenez
--- NOTE | 2021-10-14 16:39 | P.HP ---
Certification for Inpatient Patient admitted to: Observation With expected LOS: <2 Midnights Patient will require the following post-hospital care: None Practitioner: I am a practitioner with admitting privileges, knowledge of patient current condition, hospital course, and medical plan of care. Services: Services provided to patient in accordance with Admission requirements found in Title 42 Section 412.3 of the Code of Federal Regulations Patient History Date of Service: 10/14/21 Reason for admission: weakness History of Present Illness: Ms. Begum is a 66 yo female with HTN and HLD who presents with three months of insomnia, weight loss of 10lbs, headache, and anorexia. She also reports palpitations, weakness, fatigue. Every time she eats she gags. When she is able to keep food down, she has a bowel movement immediately. She says she saw her PCP and was prescribed trazodone with no improvements in her sleep. She was prescribed Zoloft two weeks ago by an ED physician. Nonspecific EKG changes. No chest pain. BP is elevated. - Past Medical/Surgical History Diabetic: No -: HTN -: HLD Past Surgical History: Patient denies surgical history - Family History Family History: Reviewed- Non-Contributory - Social History Smoking Status: Never smoker Alcohol use: No CD- Drugs: No Caffeine use: No Place of Residence: Home Review of Systems 10-point ROS is otherwise unremarkable General: Weakness Eyes: Unremarkable ENT: Unremarkable Respiratory: Unremarkable Cardiovascular: Palpitations Gastrointestinal: Nausea Genitourinary: Unremarkable Musculoskeletal: Unremarkable Integumentary: Unremarkable Neurological: Weakness, As per HPI Lymphatics: Unremarkable Physical Examination - Physical Exam General: Alert, In no apparent distress, Oriented x3, Cooperative HEENT: Atraumatic, PERRLA, Mucous membr. moist/pink, EOMI, Sclerae nonicteric Neck: Supple, 2+ carotid pulse no bruit, No LAD, Without JVD or thyroid abnormality Respiratory: Clear to auscultation bilaterally, Normal air movement Cardiovascular: No edema, Regular rate/rhythm, Normal S1 S2 Gastrointestinal: Normal bowel sounds, No tenderness Musculoskeletal: No tenderness Integumentary: No rashes Neurological: Normal speech, Normal strength at 5/5 x4 extr, Normal tone, Sensation intact, Abnormal affect (depressed affect) Lymphatics: No axilla or inguinal lymphadenopathy - Studies Laboratory Data (last 24 hrs) 10/14/21 13:51: PT 12.9 H, INR 1.12 10/14/21 13:51: WBC 9.20, Hgb 11.9 L, Hct 35.1 L, Plt Count 272 10/14/21 12:30: Sodium 141, Potassium 3.6, BUN 22 H, Creatinine 0.99, Glucose 105, Magnesium 2.3, Total Bilirubin 0.3, AST 16, ALT 27, Alkaline Phosphatase 76, Lipase 102 Assessment and Plan - Problems (Diagnosis) (1) Anorexia Current Visit: Yes Status: Acute (2) Insomnia Current Visit: Yes Status: Acute Qualifiers: Insomnia type: unspecified Qualified Code(s): G47.00 - Insomnia, unspecified (3) Palpitations Current Visit: Yes Status: Acute (4) Nonspecific ST-T wave electrocardiographic changes Current Visit: Yes Status: Acute - Plan patient admitted for observation on telemetry, repeat EKG, repeat troponins, cardiology consulted reconcile and continue home medications hydralazine PRN for BP spikes ambien PRN bedtime PT consulted, dietitian consulted TSH/T4 pending continue IV fluid hydration DVT ppx Discharge Plan: Home Plan to discharge in: 24 Hours - Advance Directives Does patient have a Living Will: No Does patient have a Durable POA for Healthcare: No - Code Status/Comfort Care Code Status Assessed: Yes (full code ) Critical Care: No Time Spent Managing Pts Care (In Minutes): 70
[2021-10-14] MEDS ORDERED: HYDRALAZINE HCL 20 MG/ML VIAL ONE (16:55)
[2021-10-14] MEDS ORDERED: LABETALOL HCL 100 MG/20 ML ONE (19:37)
[2021-10-14 21:57] LABS: SARS-COV-2 RT PCR NEGATIVE (NEGATIVE)
[2021-10-14] MEDS ORDERED: ONDANSETRON 4 MG/2 ML VIAL IV PRN (22:39)
[2021-10-14] MEDS ORDERED: HYDRALAZINE HCL 20 MG/ML VIAL IV PRN (22:39)
[2021-10-14] MEDS ORDERED: ZOLPIDEM TARTRATE 5 MG TABLET PO PRN (22:39)
[2021-10-14] MEDS ORDERED: ACETAMINOPHEN 500 MG TAB PO PRN (22:39)
[2021-10-14 22:50] VITALS: BMI 22.4
[2021-10-14 23:03] VITALS: O2SAT 100
[2021-10-14] MEDS: NA CHLORIDE 0.9% 1,000 ML IV SCH (23:11)
[2021-10-15 05:51] LABS: Absolute Lymphocytes (CBC) 2.2 K/uL (0.7-4.9); Hematocrit 34.7 % (36.0-45.0); Lymphocytes % 22.5 % (15.3-44.8); MPV 8.5 fL (7.6-11.3); RBC Red Blood Cell Count 4.04 M/uL (3.86-4.86)
[2021-10-15 06:13] LABS: Albumin 3.3 g/dL (3.4-5.0); Bilirubin Total 0.2 mg/dL (0.2-1.0); Magnesium 2.4 mg/dL (1.8-2.4); Potassium 3.9 mmol/L (3.5-5.1); Troponin High Sensitivity 4.8 pg/mL (<58.9)
[2021-10-15] MEDS: NA CHLORIDE 0.9% 1,000 ML IV SCH (08:28)
[2021-10-15] MEDS ORDERED: PANTOPRAZOLE 40MG TABLET PO SCH (09:00)
[2021-10-15] MEDS ORDERED: POTASSIUM CL SA 10 MEQ TAB PO ONE (09:00)
[2021-10-15] MEDS ORDERED: TIMOLOL MALEATE 0.5% OPTH 5 ML BTL EACH EYE SCH (09:00)
[2021-10-15] MEDS ORDERED: ASPIRIN 81 MG CHEWABLE TABLET PO SCH (09:00)
[2021-10-15] MEDS ORDERED: NIFEDIPINE XL 30 MG TABLET PO SCH (09:00)
[2021-10-15] MEDS ORDERED: SERTRALINE HCL 50 MG TAB PO SCH (09:00)
[2021-10-15] MEDS ORDERED: hydroCHLOROthiazide 25 MG TAB PO SCH (09:00)
--- NOTE | 2021-10-15 11:32 | EKG ---
Test Date: 2021-10-14 Test Time: 15:57:29 Monogram Technician: TP MEASUREMENT RESULTS: Intervals: Rate: 62 OK: 150 QRSD: 82 QT: 416 QTc: 422 [place]: P: 60 OK: 150 QRS: 39 T: 66 INTERPRETIVE STATEMENTS: Normal sinus rhythm Septal infarct, age undetermined Abnormal ECG No previous ECG available for comparison Electronically Signed On 10-15-21 11:29:06 AIRCRAFT CABIN CLEANER by Nehemiah Castillo
--- NOTE | 2021-10-15 11:33 | EKG ---
Test Date: 2021-10-14 Test Time: 13:51:18 Broom Builder: MEASUREMENT RESULTS: Intervals: Rate: 66 W[place]: 154 QRSD: 84 QT: 412 QTc: 431 [place]: P: 63 [place]: 154 QRS: 38 T: 91 INTERPRETIVE STATEMENTS: Normal sinus rhythm Septal infarct, age undetermined Abnormal ECG Compared to ECG 10/14/2021 13:41:30 No significant changes Electronically Signed On 10-15-21 11:29:16 ENTRY LEVEL MANAGEMENT by Nehemiah Castillo
--- NOTE | 2021-10-15 11:34 | EKG ---
Test Date: 2021-10-14 Test Time: 13:36:16 Truck Driver Flatbed: MEASUREMENT RESULTS: Intervals: Rate: 64 CT: 154 QRSD: 80 QT: 426 QTc: 439 [place]: P: 65 CT: 154 QRS: 42 T: 110 INTERPRETIVE STATEMENTS: Normal sinus rhythm Septal infarct, age undetermined Inferior injury pattern ACUTE [place] Consider right ventricular involvement in acute inferior infarct Abnormal ECG Electronically Signed On 10-15-21 11:29:20 CURATOR HERBARIUM by Nehemiah Castillo
--- NOTE | 2021-10-15 11:34 | EKG ---
Test Date: 2021-10-14 Test Time: 13:41:30 Chip Washer: MEASUREMENT RESULTS: Intervals: Rate: 63 FL: 152 QRSD: 80 QT: 416 QTc: 425 [place]: P: 59 FL: 152 QRS: 40 T: 120 INTERPRETIVE STATEMENTS: Normal sinus rhythm Septal infarct, age undetermined Inferior injury pattern ACUTE [place] Consider right ventricular involvement in acute inferior infarct Abnormal ECG Compared to ECG 10/14/2021 13:38:34 No significant changes Electronically Signed On 10-15-21 11:29:19 EXECUTIVE ADMINISTRATOR by Nehemiah Castillo
--- NOTE | 2021-10-15 11:34 | EKG ---
Test Date: 2021-10-14 Test Time: 13:38:34 Time Clerk: MEASUREMENT RESULTS: Intervals: Rate: 64 SD: 156 QRSD: 80 QT: 442 QTc: 455 [place]: P: 63 SD: 156 QRS: 45 T: 114 INTERPRETIVE STATEMENTS: Normal sinus rhythm Septal infarct, age undetermined Inferior injury pattern ACUTE [place] Consider right ventricular involvement in acute inferior infarct Abnormal ECG No previous ECG available for comparison Electronically Signed On 10-15-21 11:29:19 ALCOHOL AND DRUG COUNSELOR by Nehemiah Castillo
--- NOTE | 2021-10-15 11:38 | RAD REPORT ---
EXAM DESCRIPTION: CTAbdomen Pelvis W/Wo Contrast - 10/15/2021 10:40 am CLINICAL HISTORY: unexplained weight loss COMPARISON: No comparisons TECHNIQUE: CT of the abdomen and pelvis was performed. All CT scans are performed using dose optimization technique as appropriate and may include automated exposure control or mA/KV adjustment according to patient size. FINDINGS: Lower chest: No acute abnormality. Liver: Too small to characterize liver lesions which are likely benign. Biliary: No biliary ductal dilatation. Cholelithiasis. Stomach: No significant abnormality. Duodenum: No significant focal abnormality. Pancreas: No significant abnormality. Spleen: No significant abnormality. Adrenal: No suspicious lesions. Kidney/ureter: No hydronephrosis. Bilateral renal calculi. Right renal scarring. Too small to charact erize and/or benign appearing renal lesions are noted. Retroperitoneum: No retroperitoneal adenopathy. Vascular: No aneurysm. Atherosclerosis . Bowel: Normal appendix.. Peritoneum: No ascites or free air. Ventral abdominal wall laxity. Bladder: Grossly unremarkable. Reproductive: 6 cm left adnexal cyst. Tubal ligation clips. Bones: No acute fracture. Other: n/a IMPRESSION: No acute intra-abdominal or pelvic finding. 6 cm left adnexal cystic lesion. Annual follow-up with pelvic ultrasound is recommend.
[2021-10-15 12:49] VITALS: BP 151/75; TEMP 97.7
--- NOTE | 2021-10-15 18:19 | P.DS ---
Admission Date: 10/14/21 Discharge Date: 10/15/21 Disposition: ROUTINE DISCHARGE Discharge Condition: FAIR Reason for Admission: weakness Procedures: Problem list Anorexia, insomnia, palpitations, night sweats for the last [address]-T wave changes 6 cm left adnexal cystic lesion Brief History of Present Illness: 66 yo female with HTN and HLD who presents with three months of insomnia, weight loss of 10lbs, headache, and anorexia. She also reports palpitations, weakness, fatigue. Every time she eats she gags. When she is able to keep food down, she h as a bowel movement immediately. She says she saw her PCP and was prescribed trazodone with no improvements in her sleep. She was prescribed Zoloft two weeks ago by an ED physician. Nonspecific EKG changes. No chest pain. BP is elevated. Hospital Course: Patient's blood work was within normal limits (CBC, CMP, thyroid studies). Given her symptoms, CT abdomen/pelvis was obtained. A 6 cm left adnexal cystic lesion was noted. Patient reported being told she had a 3 cm left adnexal mass 1 year ago, seen at [facility]. States she was told this was negative for cancer. Discussed the possibilities that this could possibly be cancer, at the very least needs to be further evaluated. Discussed with Dr. Lima, CA-125 and HE-4 levels were drawn, and send outs. Patient did get some brief rest overnight with Ambien. She is prescribed a few pills to be used as needed. Patient was advised to call his office today, to schedule an appointment for next week. At that point the results of the test should be back, and can discuss next steps. Patient was also seen by cardiology due to the nonspecific ST T wave changes on EKG. An echocardiogram was obtained. No other abnormalities were noted, and patient was deemed stable for discharge from cardiology standpoint as well. She is to follow-up in the turning and beading machine operator office next week. Vital Signs/Physical Exam: Temp Pulse Resp BP Pulse Ox 97.7 F 95 H 19 151/75 H 99 10/15/21 12:00 10/15/21 12:00 10/15/21 12:00 10/15/21 12:00 10/15/21 12:00 Physical Exam General: Alert, In no apparent distress, Oriented x3, Cooperative HEENT: PERRLA, Mucous membr. moist/pink, EOMI, Sclerae nonicteric Respiratory: Clear to auscultation bilaterally, Normal air movement Cardiovascular: No edema, Regular rate/rhythm Gastrointestinal: Normal bowel sounds, No tenderness, soft Musculoskeletal: No tenderness Integumentary: No rashes Neurological: Normal speech, Normal strength at 5/5 x4 extr, Normal tone, Sensation intact, depressed affect Laboratory Data at Discharge: WBC 9.60 K/uL (4.3-10.9) 10/15/21 05:10 Hgb 11.5 g/dL (12.0-15.0) L 10/15/21 05:10 Hct 34.7 % (36.0-45.0) L 10/15/21 05:10 Plt Count 258 K/uL (152-406) 10/15/21 05:10 PT 12.9 SECONDS (9.5-12.5) H 10/14/21 13:51 INR 1.12 10/14/21 13:51 Sodium 142 mmol/L (136-145) 10/15/21 05:26 Potassium 3.9 mmol/L (3.5-5.1) 10/15/21 05:26 BUN 24 mg/dL (7-18) H 10/15/21 05:26 Creatinine 1.09 mg/dL (0.55-1.3) 10/15/21 05:26 Glucose 121 mg/dL (74-106) H 10/15/21 05:26 Phosphorus 4.0 mg/dL (2.5-4.9) 10/15/21 05:26 Magnesium 2.4 mg/dL (1.8-2.4) 10/15/21 05:26 Total Bilirubin 0.2 mg/dL (0.2-1.0) 10/15/21 05:26 AST 12 U/L (15-37) L 10/15/21 05:26 ALT 23 U/L (12-78) 10/15/21 05:26 Alkaline Phosphatase 68 U/L (45-117) 10/15/21 05:26 Triglycerides 96 mg/dL (<150) 10/15/21 05:26 Cholesterol 176 mg/dL (<200) 10/15/21 05:26 HDL Cholesterol 65 mg/dL (40-60) H 10/15/21 05:26 Cholesterol/HDL Ratio 2.71 10/15/21 05:26 Lipase 102 U/L (73-393) 10/14/21 12:30 Home Medications: Aspirin 81 mg PO DAILY 10/14/21 Ezetimibe [Zetia*] 10 mg PO DAILY 10/14/21 Latanoprost/Pf [Latanoprost 0.005% Eye Drop] 1 gtt EACH EYE BEDTIME 10/14/21 Nifedipine [Procardia Xl] 30 mg PO DAILY 10/14/21 Pantoprazole [Protonix Tab*] 40 mg PO DAILY 10/14/21 Sertraline HCl 50 mg PO DAILY 10/14/21 Timolol 0.5% Opth [Timoptic 0.5% Opth*] 1 gtt EACH EYE BEDTIME 10/14/21 hydroCHLOROthiazide [Hydrochlorothiazide] 25 mg PO DAILY 10/14/21 Zolpidem Tartrate [Ambien*] 5 mg PO BEDTIME PRN PRN 10 Days #10 tablet 10/15/21 New Medications: Zolpidem Tartrate [Ambien*] 5 mg PO BEDTIME PRN PRN 10 Days #10 tablet PRN Reason: Insomnia Physician Discharge Instructions: Patient's blood work was within normal limits (CBC, CMP, thyroid studies). Given her symptoms, CT abdomen/pelvis was obtained. A 6 cm left adnexal cystic lesion was noted. Patient reported being told she had a 3 cm left adnexal mass 1 year ago, seen at [facility]. States she was told this was negative for cancer. Discussed the possibilities that this could possibly be cancer, at the very least needs to be further evaluated. Discussed with Dr. Lima, CA-125 and HE-4 levels were drawn, and send outs. Patient did get some brief rest overnight with Ambien. She is prescribed a few pills to be used as needed. Patient was advised to call his office today, to schedule an appointment for next week. At that point the results of the test should be back, and can discuss next steps. Patient was also seen by cardiology due to the nonspecific ST T wave changes on EKG. An echocardiogram was obtained. No other abnormalities were noted, and patient was deemed stable for discharge from cardiology standpoint as well. She is to follow-up in the turning and beading machine operator office next week. Diet: Regular Activity: Ad jayme Followup: OOT,OOT [Primary Care Provider] - Time spent managing pt's care (in minutes): 45
--- NOTE | 2021-10-16 20:23 | CON ---
Date of Consultation: 10/15/2021 Reason For Consultation: Near syncope. History Of Present Illness: Ms. Begum is a 66-year-old woman with history of hypertension, dyslipid emia, came in with nonspecific symptoms including near syncope, headache, weight loss, sees primary Sheeba Briceño at [facility]. Has a history of hypertension, dyslipidemia, gastroesophageal reflux disease. She denie d any chest pain. Denied any nausea, vomiting, diaphoresis, PND, orthopnea, pedal edema, or palpitat ion. Denied any fever or chills. She is more concerned about her weight loss than anything. Past Medical History: As stated above. Allergies: SHE IS ALLERGIC TO NO MEDICATION. Review of Systems: Negative. Social History: Negative. Family History: Noncontributory. Physical Examination: VITAL SIGNS: Stable. She was afebrile HEENT: Negative. NECK: Supple. No bruit. CHEST: Clear. CARDIAC: Revealed regular rhythm and rate. No murmurs, gallops, or rubs. ABDOMEN: Benign. EXTREMITIES: Revealed no clubbing, cyanosis, or edema. Diagnostic Data: Fairly unremarkable. EKG is nonspecific. Echocardiogram, which was ordered and do ne before I saw the patient, was perfectly normal. Impression And Plan: Near syncope secondary to orthostatic hypotension may be exacerbated by weight loss. Patient has taken Procardia and hydrochlorothiazide. She is also on timolol, which is a beta jordana eyedrop, which may exacerbate hypotension. Other problems including dyslipidemia, which is s table. Her weight loss is actually significant and may need to be had extensive workup. I believe Randell Perez had ordered a CT on her abdomen. From a cardiac standpoint, I do not think we need to do an y further cardiac workup except for the echo, which was done. If her syncope reoccurred, then she wi ll need an eye monitor as an outpatient. STEVE/PROSPER Voice ID: [id number] Report ID: [id number]
--- NOTE | 2021-10-18 07:05 | ECHO ---
HEIGHT: 5 ft 6 in WEIGHT: 138 lb 12.8 oz DATE OF STUDY: 10/15/[address]: Nehemiah Castillo MD 2-DIMENSIONAL: YES M.MODE: YES DOPPLER: YES COLOR FLOW: YES TDS: NO PORTABLE: NO DEFINITY: NO BUBBLE STUDY: NO DIAGNOSIS: CHEST PAIN, PRE SYNCOPE CARDIAC HISTORY: CATHERIZATION: NO SURGERY: NO PROSTHETIC VALVE: NO PACEMAKER: NO MEASUREMENTS (cm) DIASTOLIC (NORMALS) SYSTOLIC (NORMALS) IVSd 0.8 (0.6-1.2) LA Diam 1.8 (1.9-4.0) LVEF 67% LVIDd 4.0 (3.5-5.7) LVIDs 2.5 (2.0-3.5) %FS 37% LVPWd 0.9 (0.6-1.2) Ao Diam 2.4 (2.0-3.7) 2 DIMENSIONAL ASSESSMENT: RIGHT ATRIUM: NORMAL LEFT ATRIUM: NORMAL RIGHT VENTRICLE: NORMAL LEFT VENTRICLE: NORMAL TRICUSPID VALVE: NORMAL MITRAL VALVE: NORMAL PULMONIC VALVE: NORMAL AORTIC VALVE: NORMAL PERICARDIAL EFFUSION: NONE AORTIC ROOT: NORMAL LEFT VENTRICULAR WALL MOTION: NORMAL. DOPPLER/COLOR FLOW: MILD TRICUSPID REGURGITATION. COMMENTS: MILD TRICUSPID REGURGITATION - NORMAL VARIANT. NORMAL LEFT VENTRICULAR EJECTION FRACTION AND SIZE. NO WALL MOTION ABNORMALITY. NO EFFUSION. TECHNOLOGIST: SARATH PAIGE
== END 2021-10-15 15:50 | disposition home or self-care (01) ==
LOC: ER 11:55 → ERHOLD 16:25 → 2ND 22:33
PROVIDERS: ADMIT Hospitalist; ATTEND Hospitalist
DX: R63.0 Anorexia (principal); Z68.22 Body mass index [BMI] 22.0-22.9, adult; I95.1 Orthostatic hypotension; R94.31 Abnormal electrocardiogram [ECG] [EKG]; G47.00 Insomnia, unspecified; R00.2 Palpitations; R19.09 Other intra-abdominal and pelvic swelling, mass and lump; I10 Essential (primary) hypertension; E78.5 Hyperlipidemia, unspecified; K21.9 Gastro-esophageal reflux disease without esophagitis; R61 Generalized hyperhidrosis; Z20.822 Contact with and (suspected) exposure to COVID-19
CPT/HCPCS: 93005 ×5; 93306; 87088; 85025 ×2; 87086; 80048; 36415; 83735 ×2; 84100; 85610; 80061; 80076; 84443; 87077; 87186; 81003; 84484 ×2; 84439; 83690; 80053; 83880; 0240U; 83835; 86304; 70450; 74178; 71045; 96375; 96374; 99285; 86305; Q9967; J0360; J7030 ×2; G0378 ×3